=== PATIENT | male | born 1980 | race African-American/Black ===

== ENCOUNTER 2020-12-02 21:56 | Emergency (ER) | payer OTHER ==
[~2020-12-02] VITALS: Ht 190.5 cm; Wt 133.8 kg
[2020-12-02 22:10] VITALS: BP 117/64
--- NOTE | 2020-12-02 22:10 | NUR ---
PT AMBULATED TO CHAIR A.
--- NOTE | 2020-12-03 00:07 | NUR ---
BRANDAND ASSESSED PATIENT BY KEO.
[2020-12-03 00:50] VITALS: BP 122/70
[2020-12-03] MEDS ORDERED: EMTRICITABINE/TENOFOVIR 200-300MG 1 TAB PO SCH (00:50)
--- NOTE | 2020-12-03 00:50 | NUR ---
Patient discharged with v/s stable. Written and verbal after care instructions given and explained. Patient alert, oriented and verbalized understanding of instructions. Ambulatory with steady gait. All questions addressed prior to discharge. ID band removed. Patient advised to follow up with PMD. Rx of TRUVADA given. Patient educated on indication of medication including possible reaction and side effects. Opportunity to ask questions provided and answered.
[2020-12-04 10:34] LABS: HEPATITIS B SURFACE ANTIGEN Negative (Negative)
== END 2020-12-03 00:50 | disposition home or self-care (01) ==
LOC: MED 21:56
DX: S61.230A Puncture wound without foreign body of right index finger without damage to nail, initial encounter (principal); W46.0XXA Contact with hypodermic needle, initial encounter; Y93.89 Activity, other specified; Y92.89 Other specified places as the place of occurrence of the external cause; Y99.8 Other external cause status
CPT/HCPCS: 36415; 86592; 86702; 86803; 87340; 99283